=== PATIENT | male | born 1970 | race Caucasian/White ===

== ENCOUNTER 2024-12-20 15:10 | Emergency (ER) | payer MEDICAID ==
[2024-12-20 15:21] VITALS: TEMP 98.6
--- NOTE | 2024-12-20 15:51 | ED ---
General Adult HPI - General Chief complaint: Neck Pain/Injury Stated complaint: neck pain Time Seen by Provider: 12/20/24 15:46 Source: patient Mode of arrival: ambulatory Limitations: no limitations - History of Present Illness Initial comments: Patient presents to the ED with his friend for evaluation. 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 Patient states that for the past 3 weeks or so, he has been experiencing pain in his posterior neck and left anterolateral shoulder. Patient also states that over the past few days he has been experiencing s hooting pains down his left arm, and he states that for the past 2 days he has experienced tingling in his left first and second digits at times. Patient denies any known trauma or injury. Patient denies any other area of numbness or tingling. Patient denies focal weakness. Patient denies fever or chills, headache, visual changes, speech difficulty, back pain, arm swelling, chest pain, dyspnea, dizziness, nausea or vomiting, or any other symptoms or complaints. Patient states that he has been taking Tylenol (last dose about 8 hours ago) and Motrin (last dose about 4 hours ago) for his pain without much relief. - Related Data Previous Rx's Medication Instructions Recorded methylPREDNISolone Dose Pack 24 mg PO DAILY #1 tab 12/20/24 [Medrol Dose Pack] Allergies Allergy/AdvReac Type Severity Reaction Status Date / Time No Known Allergies Allergy Verified 12/20/24 15:21 Review of Systems ROS Statement: Those systems with pertinent positive or pertinent negative responses have been documented in the HPI. ROS Other: All systems not noted in ROS Statement are negative. 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 Absent: tenderness Respiratory exam: Present: normal lung sounds bilaterally. Absent: respiratory distress, wheezes, rales, rhonchi, stridor Cardiovascular Exam: Present: regular rate, normal rhythm, normal heart sounds, other (Normal radial pulses bilaterally) Extremities exam: Present: normal inspection, full ROM. Absent: tenderness Back exam: Present: normal inspection. Absent: tenderness Neurological exam: Present: alert, oriented X3, CN II-XII intact. Absent: motor sensory deficit Psychiatric exam: Present: normal affect Skin exam: Present: warm, dry, normal color Course Vital Signs 12/20/24 15:17 Temperature 98.6 F Pulse Rate 77 Respiratory 17 Rate Blood Pressure 137/94 O2 Sat by Pulse 95 Oximetry - Reevaluation(s) Reevaluation #1: 12/20/24 17:16 Patient denies development of any new symptoms while in the ED. Patient is aware of his imaging reports, and he feels comfortable being discharged home at this time. He was counseled about neck/arm pain, paresthesias and cervical radiculopathy. He was clearly explained return and follow-up instructions, and he was instructed to follow-up closely with a primary care provider. He feels comfortable with this plan. Medical Decision Making - Medical Decision Making Was pt. sent in by a medical professional or institution (, PA, CONDITIONER TENDER, urgent care, hospital, or long term...) When possible be specific @ -No Did you speak to anyone other than the patient for history (EMS, parent, family, police, friend...)? What history was obtained from this source @ -No Did you review nursing and triage notes (agree or disagree)? Why? @ -I reviewed and agree with nursing and triage notes Were old charts reviewed (outside hosp., previous admission, EMS record, old EKG, old radiological studies, urgent care reports/EKG's, long term records)? Report findings @ -No old charts were reviewed Differential Diagnosis (chest pain, altered mental status, abdominal pain women, abdominal pain men, vaginal bleeding, weakness, fever, dyspnea, syncope, headache, dizziness, GI bleed, back pain, seizure, CVA, palpatations, mental health, musculoskeletal)? @ -Sprain, strain, DDD, DJD, herniated disc disease, cervical radiculopathy, neuropathy, fracture, dislocation, this is not meant to be a complete list. EKG interpreted by me (3pts min.). @ -None done X-rays interpreted by me (1pt min.). @ -Left shoulder x-rays were reviewed myself and show no acute abnormality. I agree with the radiologist's interpretation as above. CT interpreted by me (1pt min.). @ -Noncontrast CT cervical spine was reviewed myself and shows no acute fra cture. It does demonstrate C5-C6 disc protrusion. I agree with the radiologist's interpretation as above. U/S interpreted by me (1pt. min.). @ -None done What testing was considered but not performed or refused? (CT, X-rays, U/S, labs)? Why? @ -None What meds were considered but not given or refused? Why? @ -None Did you discuss the management of the patient with other professionals (tomás lozada i.e. , PA, CONDITIONER TENDER, lab, RT, psych nurse, health and social care teacher, principle software engineer, teacher, chief business officer, case work aide)? Give summary @ -No Was smoking cessation discussed for >3mins.? @ -No Was critical care preformed (if so, how long)? @ -No Were there social determinants of health that impacted care today? How? (Homelessness, low income, unemployed, alcoholism, drug addiction, transportation, low edu. Level, literacy, decrease access to med. care, longterm, rehab)? @ -No Was there de-escalation of care discussed even if they declined (Discuss DNR or withdrawal of care, Hospice)? DNR status @ -No What co-morbidities impacted this encounter? (DM, HTN, Smoking, COPD, CAD, Cancer, CVA, ARF, Chemo, Hep., AIDS, mental health diagnosis, sleep apnea, morbid obesity)? @ -None Was patient admitted / discharged? Hospital course, mention meds given and route, prescriptions, significant lab abnormalities, going to OR and other pertinent info. @ -Patient is aware of his imaging findings. I suspect that the patient's symptoms are likely due to cervical radiculopathy. Will discharge patient home with a prescription for a Medrol Dosepak, as well as a starter pack of Tylenol 3's. Patient was instructed to follow-up closely with his primary care provider. Patient feels comfortable with this plan. Undiagnosed new problem with uncertain prognosis? @ -No Drug Therapy requiring intensive monitoring for toxicity (Heparin, Nitro, Insulin, Cardizem)? @ -No Were any procedures done? @ -No Diagnosis/symptom? @ -Neck and left arm pain, left hand paresthesias, suspected cervical radiculopathy Acute, or Chronic, or Acute on Chronic? @ -Acute/subacute Uncomplicated (without systemic symptoms) or Complicated (systemic symptoms)? @ -Default Side effects of treatment? @ -No Exacerbation, Progression, or Severe Exacerbation? @ -No Poses a threat to life or bodily function? How? (Chest pain, [place], [place], pneumonia, PE, COPD, DKA, ARF, appy, cholecystitis, CVA, Diverticulitis, Homicidal, Suicidal, threat to staff... and all critical care pts) @ -No - Radiology Data Left shoulder x-rays: 1. No acute osseous pathology. 2. Calcified loose body within the inferior shoulder joint. Noncontrast CT cervical spine: 1. No evidence of cervical spine fracture. 2. Mild multilevel degenerative disc disease. Consider MRI if this continued clinical concern. Disposition Clinical Impression: Neck pain, Left arm pain, Paresthesia of left arm Disposition: HOME SELF-CARE Condition: Stable Instructions (If sedation given, give patient instructions): Cervical Radiculopathy (ED), Paresthesia (ED) Additional Instructions: Return to the ER if you develop new or worsening pain, numbness/weakness, a fever, chest pain, shortness of breath, or new or worsening symptoms. Follow-up closely with your primary care provider. Prescriptions: methylPREDNISolone Dose Pack [Medrol Dose Pack] 24 mg PO DAILY #1 tab Is patient prescribed a controlled substance at d/c from ED?: No Referrals: None,Stated [Primary Care Provider] - 1-2 days Elie Irwin DO [STAFF PHYSICIAN] - 1-2 days Time of Disposition: 17:21
[2024-12-20] MEDS: oxyCODONE-APAP 5-325MG 1 EACH TAB PO STA (16:03)
--- NOTE | 2024-12-20 16:33 | XR ---
EXAMINATION TYPE: XR shoulder complete LT DATE OF EXAM: 12/20/2024 4:24 PM INDICATION: Patient age:Male; 54 years old; Reason for study: Left shoulder pain; pain COMPARISON: None TECHNIQUE: The left shoulder was examined in AP, internally rotated and scapular Y projections. . FINDINGS: No evidence of acute osseous pathology, joint dislocation, or soft tissue swelling. There is a 1.2 cm calcified loose body within the inferior shoulder joint. The remaining portions of the visualized ch est are unremarkable. IMPRESSION: 1. No acute osseous pathology. 2. Calcified loose body within the inferior shoulder joint. [facility], , 12/20/2024 4:31 PM
--- NOTE | 2024-12-20 16:40 | CT ---
EXAMINATION TYPE: CT cervical spine wo con CT DLP: 238.3 mGycm, Automated exposure control for dose reduction was used. DATE OF EXAM: 12/20/2024 4:24 PM COMPARISON: None. CLINICAL INDICATION:Male, 54 years old with history of neck pain, left shoulder pain, left hand tingl ing; PHH, neck pain radiating down left arm, numbness to left arm, pain TECHNIQUE: Axial CT images from the skull base to the inferior aspect of T2 we obtained without intra venous contrast. Coronal and sagittal reformatted images were also reviewed. FINDINGS: Fracture: None. Osseous structures: Multilevel anterior osteophytosis. Vertebral alignment: Within normal limits. Spinal canal/Neural Foramina: Suggested central disc protrusion versus broad based disc bulge involvi ng the C5-C6 disc with at least mild central canal stenosis. No other evidence for significant centra l canal stenosis. No evidence for significant neural foraminal stenosis. Neck soft tissues: Prevertebral soft tissues are within normal limits. Other: The airway is patent. The lung apices are clear. Mild to moderate mucosal thickening of the ri ght maxillary sinus. Minimal mucosal thickening inferior left maxillary sinus. IMPRESSION: 1. No evidence of cervical spine fracture. 2. Mild multilevel degenerative disc disease. Consider MRI if this continued clinical concern. [facility], , 12/20/2024 4:38 PM
[2024-12-20] MEDS: ACET/COD 300 MG/30 MG STARTER PACK 6 TAB BTL PO STA (17:28)
[2024-12-20 17:31] VITALS: BP 140/90; PULSE 80; RESP 18
== END 2024-12-20 17:31 | disposition home or self-care (01) ==
LOC: EC 15:10
DX: M54.2 Cervicalgia (principal); M79.602 Pain in left arm; R20.2 Paresthesia of skin
CPT/HCPCS: 72125; 99284